=== PATIENT | male | born 1965 | race African-American/Black ===

== ENCOUNTER 2017-12-02 13:10 | Outpatient (CLI) | payer MEDICARE, OTHER ==
[2016-05-22 17:14] VITALS: BP 151/89
--- NOTE | 2017-12-02 13:49 | Diagnostic Imaging Report ---
GENNY MENDOZA [facility] [address] [facility] [address] [address] Report Submission Date: Dec 02, 2017 1:47:55 PM TEXTILE DESIGNER Patient Study Name: TOMAS MICHAUD Date: Dec 02, 2017 1:25:06 PM TEXTILE DESIGNER Modality Type: DX Gender: M Description: LOWER EXTREMITY : 65 Institution: [facility] Physician: GENNY MENDOZA Examination: Plain film right knee History: PAIN X 2 WEEKS NO KNOWN INJURY (Hx) Findings: 2 views of the right knee demonstrates minimal articular spurring. No fracture. No dislocation. No joint effusion. No soft tissue irregularity. Impression: Minimal degenerative changes. No acute appearing osseous abnormality. Electronically signed on Dec 02, 2017 1:47:55 PM TEXTILE DESIGNER by: Jameson CUMMINGS
== END 2017-12-02 13:11 ==
LOC: RAD 13:10
PROVIDERS: ATTEND Family Medicine
DX: M25.561 Pain in right knee (principal)
CPT/HCPCS: 73560

== ENCOUNTER 2018-05-13 07:32 | Emergency (ER) | payer MEDICARE, OTHER ==
--- NOTE | 2018-05-13 07:37 | ED Physician Documentation ---
General Adult - HISTORIAN Historian: patient - HPI Stated Complaint: dyspnea Chief Complaint: Dyspnea Onset: other (not sure from report of nurse "edvon" She was off for three days and when she returned this am he was lethargic and with out his CPAP. She states when they placed the CPAP and he did arouse slightly and he also did recover to the low "90's" She states he is usually alert but she states he has "episodes" of lethergy. She also reported that Wednesday was the last day she worked and she had to give him frequent breathing treatments and today "I just cant do that today" ) Timing: still present Severity: moderate Further Comments: yes (No report prior to calling [facility]. [facility] states he was low 90's with 3L of oxygen . No fever noted.) Last known Well Code/Unknown Code: Unknown - ROS CONST: no problems - PAST HX Past History: CHF, other (DM , CHF ) Surgeries/Procedures: other (unknown ) Immunizations: other (unknown ) Allergies/Adverse Reactions: Allergies Allergy/AdvReac Type Severity Reaction Status Date / Time No Known Allergies Allergy Verified 05/13/18 15:28 Home Medications: Ambulatory Orders Medication Instructions Recorded Acetaminophen [Tylenol Extra 500 mg PO Q4 PRN 02/25/16 Strength] Aspirin [Tee] 81 mg PO D 02/25/16 Hydralazine HCl [Apresoline] 25 mg PO TID 02/25/16 Mag Hydrox/Aluminum Hyd/Simeth 30 ml PO Q4 PRN 02/25/16 [Mylanta] Melatonin 3 mg PO HS 02/25/16 Metoprolol Succinate [Toprol XL] 50 mg PO D 02/25/16 Oxycodone HCl [Roxicodone] 5 mg PO Q6 02/25/16 Sennosides/Docusate Sodium 1 tab PO D 02/25/16 [Senna-Docusate Sodium Tablet] Warfarin Sodium [Coumadin] 5 mg PO HS 02/25/16 - SOCIAL HX Smoking History: cigarettes Alcohol Use: none Drug Use: none - FAMILY HX Family History: No - VITAL SIGNS Vital Signs: Vital Signs Temp Pulse Resp BP Pulse Ox 151/89 05/22/16 17:05 - REVIEWED ASSESSMENTS Nursing Assessment Reviewed: Yes Vitals Reviewed: Yes Progress - Progress Progress: 0830 : Discussed case with Dr Amaya DG 0900: Lab notified and awaiting lab results DG 0915: awaiting lab results . Pt in bed with mask. Will arouse to name but no active talking DG 1045: awaiting lab . Dr Amaya aware. Code status is full on paperwork. Will await lab results for consider of admission DG 1130: awaiting lab. Pt care completed. He does respond to commands helped with care by grabbing for side rail to turn over and he did state "that is cold". Note buttocks with peeling skin and abrasions on both buttocks. DG 1255: Still awaiting lab results. sleeping in room. Arouses to name but quickly goes back to sleep DG 1330: Dr Amaya at bedside for exam. Still awaiting labs. Sai and Vinicio state there is a call into the chemistry department to release as soon as p ossible. DG 1355: Pt is sitting up in bed asking where he is and he denies any pain DG 1440: CMP is resulted and discussed with Dr Amaya - and pt will return to correction with current orders DG ED Results Lab/Radiology - Radiology Radiology Impressions: Examination: Portable chest History: Evaluate lungs. PCXR, SOA, PT UNABLE TO FOLLOW BREATHING INSTRUCTIONS OR GIVE FURTHER HX (Hx) Comparison exam: None available. Findings: Single view of the chest demonstrates a normal cardiac and mediastinal silhouette. Lung sosa without focal infiltrate. No blunting of the costophrenic margins. Right-sided CLINICAL INFORMATICS SPECIALIST shunt. Osseous structures are appropriate for age. Impression: No acute pulmonary process. Electronically signed on May 13, 2018 8:19:10 AM CDT by: Jameson Hoyt Examination: CT head without contrast History: UNRESPONSIVE, UNABLE TO GET ANY HX (Hx) Comparison exam: None available Technique: Noncontrast head CT protocol. Findings: Ventricles and sulci are prominent, left greater than right. Cerebrocerebellar parenchyma demonstrates periventricular low attenuation consistent with small vessel disease. Significant left cerebral low attenuation suggesting old left middle cerebral artery infarct. Shunt in place: tip within the left lateral ventricle. Left anterior craniotomy surgical changes. No evidence for parenchymal hemorrhage. No evidence for mass or mass effect. No midline shift. No extra axial fluid collections. Partial visualization of the paranasal sinuses, mastoid air cells, and orbits are without gross irregularity. Impression: Advanced age related changes. 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 Left craniotomy surgical changes. Shunt in place: tip within the left lateral ventricle. Correlation with older studies highly recommended if become available to assess stability the presumed age related parenchymal changes and presumed old left middle cerebral artery infarct. Electronically signed on May 13, 2018 12:51:08 PM CDT by: Jameson Hoyt General Adult Physical Exam - PHYSICAL EXAM GENERAL APPEARANCE: mild distress EENT: eye inspection normal NECK: normal inspection RESPIRATORY: no resp distress, wheezes, other (mouth breathing ) CVS: reg rate & rhythm, heart sounds normal, no murmur ABDOMEN: soft, normal bowel sounds, no distension, non-tender BACK: normal inspection SKIN: warm/dry, other (open areas on buttock and left foot 2nd toe ) EXTREMITIES: non-tender, edema (1+ pedal ) NEURO: other (lethargic - mild arousal to his name ) Discharge Clincal Impression: Hypoxia Referrals: Primary Doctor,No [Primary Care Provider] - 2 Days Comments: 1. Make sure he wears his CPAP at night 2. Follow current orders 3. No new orders per Dr Amaya 4. Return to ER for further concerns Condition: Stable Disposition: 01 HOME, SELF-CARE Decision to Admit: NO Date of Decison to Admit: 05/13/18 Decision Time: 14:45
[2018-05-13] MEDS ORDERED: IPRATROPIUM/ALBUTEROL SULFATE 3 ML AMPUL.NEB NEB ONE (07:45)
[2018-05-13] MEDS ORDERED: 0.9 % SODIUM CHLORIDE 1,000 ML IV ONE ×2 (08:27→08:29)
[2018-05-13] MEDS ORDERED: NALOXONE HCL 0.4 MG/ML AMP ONE (08:27)
[2018-05-13] MEDS ORDERED: NALOXONE HCL 0.4 MG/ML AMP IVP ONE (08:28)
[2018-05-13] MEDS ORDERED: DEXTROSE 5 %-0.45 % SOD CHLORD 1,000 ML IV ONE (08:49)
[2018-05-13] MEDS ORDERED: DEXTROSE 5 % AND 0.9 % NACL 1,000 ML IV SCH (09:00)
[2018-05-13 10:37] LABS: BASO % 0.4 % (0.0-1.5); EOS % 0.5 % (0.0-6.8); LYMPH ABS # 2.69 thou/uL (0.60-4.00); MCH. 34.4 pg (28.0-34.0); MCV 104.9 fL (80.0-100.0); MONOCYTE % 9.8 % (0.0-11.0); MONOCYTE ABS # 0.84 thou/uL (0.00-0.90); PLATELET COUNT 73 thou/uL (130-400)
[2018-05-13 11:30] LABS: APPEARANCE,URINE CLEAR (CLEAR); COLOR,URINE YELLOW (YELLOW); OCCULT BLOOD,URINE NEGATIVE (NEGATIVE); UROBILINOGEN URINE 0.2 Eu (0.2-1.0)
[2018-05-13 11:36] LABS: CANNABINOIDS NEGATIVE ng/mL (< 50); METHYLENEDIOXYMETHAMPHETAMINE NEGATIVE ng/mL (<500)
[2018-05-13 14:11] LABS: TOTAL PROTEIN 7.8 g/dL (6.0-8.5)
--- NOTE | 2018-05-13 15:05 | Diagnostic Imaging Report ---
RHEA MANCILLA [facility] [address] [facility] [address] [place], [place]. [address] Report Submission Date: May 13, 2018 8:19:10 AM CDT Patient Study Name: TOMAS MICHAUD Date: May 13, 2018 7:57:06 AM CDT Modality Type: DX Gender: M Description: CHEST : 65 Institution: [facility] Physician: RHEA MANCILLA Examination: Portable chest History: Evaluate lungs. PCXR, SOA, PT UNABLE TO FOLLOW BREATHING INSTRUCTIONS OR GIVE FURTHER HX (Hx) Comparison exam: None available. Findings: Single view of the chest demonstrates a normal cardiac and mediastinal silhouette. Lung sosa without focal infiltrate. No blunting of the costophrenic margins. Right-sided PRECISION ASSEMBLER shunt. Osseous structures are appropriate for age. Impression: No acute pulmonary process. Electronically signed on May 13, 2018 8:19:10 AM CDT by: Jameson CUMMINGS
--- NOTE | 2018-05-13 15:05 | Diagnostic Imaging Report ---
RHEA MANCILLA [facility] [address] [facility] [address] [place], [place]. [address] Report Submission Date: May 13, 2018 12:51:08 PM CDT Patient Study Name: TOMAS MICHAUD Date: May 13, 2018 12:21:08 PM CDT Modality Type: CT\SR Gender: M Description: CT BRAIN W/O CONTRAST : 65 Institution: [facility] Physician: RHEA MANCILLA Examination: CT head without contrast History: UNRESPONSIVE, UNABLE TO GET ANY HX (Hx) Comparison exam: None available Technique: Noncontrast head CT protocol. Findings: Ventricles and sulci are prominent, left greater than right. Cerebrocerebellar parenchyma demonstrates periventricular low attenuation consistent with small vessel disease. Significant left cerebral low attenuation suggesting old left middle cerebral artery infarct. Shunt in place: tip within the left lateral ventricle. Left anterior craniotomy surgical changes. No evidence for parenchymal hemorrhage. No evidence for mass or mass effect. No midline shift. No extra axial fluid collections. Partial visualization of the paranasal sinuses, mastoid air cells, and orbits are without gross irregularity. Impression: Advanced age related changes. 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 Left craniotomy surgical changes. Shunt in place: tip within the left lateral ventricle. Correlation with older studies highly recommended if become available to assess stability the presumed age related parenchymal changes and presumed old left middle cerebral artery infarct. Electronically signed on May 13, 2018 12:51:08 PM CDT by: Jameson CUMMINGS
[2018-05-13 15:19] VITALS: BP 126/69
== END 2018-05-13 15:00 | disposition home or self-care (01) ==
LOC: ED 07:32
DX: R09.02 Hypoxemia (principal)
CPT/HCPCS: 70450; 71045; 80053; 80164; 81002; 83880; 84484; 85025; 85379; 85610; 93005; G0481; J2310; J7030; 80377; 94640; 96365; 96366; 96375; 99284; S1016; S5010